=== PATIENT | female | born 1960 | race Two or more races ===

== ENCOUNTER 2017-01-22 21:07 | Inpatient (IN) | payer MEDICAID ==
[~2017-01-22] VITALS: Ht 160 cm; Wt 68.5 kg
[~2017-01-22 21:07] MED LIST: ASPI81CH43; FLUC100T; MEDR10TA9; METHADONE
[2017-01-22 21:55] LABS: Basophils # (auto) 0.1 uL; Basophils % (auto) 0.4 % (0.0-2.0); CONDITION Y; Eosinophils # (auto) 0.1 uL; Eosinophils % (auto) 0.7 % (0.0-7.0); Hematocrit 32.8 % (36.0-46.0); Hemoglobin 10.9 g/dL (12.2-16.2); Lymphocytes # (auto) 2.4 uL; Lymphocytes % (auto) 15.8 % (10.0-50.0); Mean Corpuscular Hgb Conc. 33.3 g/dL (32.0-36.0); Mean Platelet Volume 8.2 fL (7.4-10.4); Monocytes # (auto) 1.1 uL; Monocytes % (auto) 7.1 % (0.0-12.0); Neutrophils # (auto) 11.3 uL; Platelet Count (auto) 363 10^3/uL (140-450); White Blood Cell 14.9 10^3/uL (4.4-10.8)
[2017-01-22 22:23] LABS: Albumin 2.8 g/dL (3.4-5.0); BUN/Creatinine Ratio 14.1; Bilirubin, Total 0.5 mg/dL (0.2-1.0); Calcium 8.6 mg/dL (8.5-10.1); Potassium 3.6 mmol/L (3.5-5.1); Total Protein 8.5 g/dL (6.4-8.2)
[2017-01-23] MEDS ORDERED: SODIUM CHLORIDE 0.9% 1,000 ML IV ONE (03:45)
[2017-01-23] MEDS ORDERED: ALBUTEROL SULF 2.5 MG/0.5ML(0.5%) NEB SOLN NEB ONE (03:45)
[2017-01-23] MEDS ORDERED: cefTRIAXone 1GM/50ML D5W 50 ML IV ONE (03:45)
[2017-01-23] MEDS ORDERED: IPRATROPIUM BROM 0.5 MG/2.5ML INH SOL NEB ONE (03:45)
[2017-01-23] MEDS ORDERED: SODIUM CHLORIDE 0.9% 1,000 ML IV SCH (04:43)
[2017-01-23] MEDS ORDERED: ACETAMINOPHEN 325 MG TAB PO PRN (04:45)
[2017-01-23] MEDS ORDERED: HYDROcodone-ACET 5/325MG TAB PO PRN (04:45)
[2017-01-23] MEDS ORDERED: ALBUTEROL SULF 2.5 MG/0.5ML(0.5%) NEB SOLN NEB PRN (04:45)
[2017-01-23] MEDS ORDERED: ONDANSETRON HCL 4 MG/2 ML VIAL IV PRN (04:45)
[2017-01-23] MEDS ORDERED: SODIUM CHLORIDE 0.9% 500 ML IV ONE (04:45)
[2017-01-23] MEDS ORDERED: methylPREDNISolone SOD SUCC 125 MG/2 ML VL IV ONE (04:45)
[2017-01-23] MEDS ORDERED: MORPHINE SULF INJ 2 MG/ML SYRINGE 1ML IV PRN (04:45)
[2017-01-23] MEDS ORDERED: AZITHROMYCIN 500MG/D5W 250ML 250 ML IV ONE (04:45)
[2017-01-23 06:51] VITALS: BP 97/65
[2017-01-23 08:09] LABS: Urine Bilirubin Negative (Negative); Urine Blood TRACE /uL (Negative); Urine Color Yellow (Yellow); Urine Glucose Normal (Normal); Urine Ketone Negative (Negative); Urine Nitrite Negative (Negative); Urine RBC 2 /hpf (0 - 4); Urine Urobilinogen Normal (Negative); Urine pH 6.5 (5.0-8.0)
[2017-01-23] MEDS: FAMOTIDINE 20 MG TAB PO SCH ×2 (10:08→22:22)
[2017-01-23] MEDS: ENOXAPARIN SOD 40 MG/0.4 ML SYRINGE SC SCH (10:09)
[2017-01-23 12:23] VITALS: BP 92/38
[2017-01-23 13:43] VITALS: BP 91/57
[2017-01-23 14:24] LABS: INR 0.98 (0.9-1.15); Partial Thromboplastin Time 34.2 sec (22.64-33.71); Prothrombin Time 10.7 sec (9.37-12.3)
[2017-01-23] MEDS ORDERED: LACTULOSE 20Gm/30ML SOLN PO PRN (15:00)
[2017-01-23 17:00] VITALS: BP 92/47
[2017-01-23 22:00] VITALS: BP 91/46
[2017-01-23] MEDS ORDERED: cefTRIAXone 1GM/50ML D5W 50 ML IV SCH (22:00)
[2017-01-24 05:00] VITALS: BP 91/51
[2017-01-24 08:00] VITALS: BP 98/52
[2017-01-24 09:30] VITALS: BP 98/52
[2017-01-24] MEDS ORDERED: IOHEXOL 350 MG/ML 100ML IJ ONE (09:41)
[2017-01-24] MEDS: FAMOTIDINE 20 MG TAB PO SCH (09:50)
[2017-01-24] MEDS: ENOXAPARIN SOD 40 MG/0.4 ML SYRINGE SC SCH (09:51)
[2017-01-24] MEDS ORDERED: METHADONE HCL 10 MG TAB PO SCH ×2 (10:00)
[2017-01-24] MEDS ORDERED: AZITHROMYCIN 500MG/D5W 250ML 250 ML IV SCH (10:00)
[2017-01-24 12:14] VITALS: BP 100/62
[2017-01-24 14:16] LABS: CONDITION Y; Hematocrit 29.4 % (36.0-46.0); Hemoglobin 9.9 g/dL (12.2-16.2); Mean Corpuscular Hemoglobin 29.2 pg (28.0-32.0); Mean Corpuscular Hgb Conc. 33.7 g/dL (32.0-36.0); Mean Corpuscular Volume 86.6 fL (80.0-100.0); Mean Platelet Volume 8.9 fL (7.4-10.4); Platelet Count (auto) 285 10^3/uL (140-450); Red Cell Distribution Width 15.1 % (11.6-16.0); SUSPECT SEE PRINTOUT; White Blood Cell 24.5 10^3/uL (4.4-10.8)
[2017-01-24 14:19] LABS: Metamyelocytes % 0; Myelocytes % 0; Promyelocytes % 0; Reactive Lymphocytes 0
[2017-01-24] MEDS ORDERED: AZIT500T4 PO (14:22)
[2017-01-24] MEDS ORDERED: ALBUAER3 IN (14:31)
[2017-01-24 14:33] LABS: Albumin 2.1 g/dL (3.4-5.0); Alkaline Phosphatase 94 U/L (45-117); Anion Gap 10 (5-15); Aspartate Aminotransferase 20 U/L (15-37); BUN/Creatinine Ratio 21.8; Bilirubin, Total < 0.1 mg/dL (0.2-1.0); Blood Urea Nitrogen 17 mg/dL (7-18); Calcium 8.6 mg/dL (8.5-10.1); Carbon Dioxide 20 mmol/L (21-32); Chloride 111 mmol/L (98-107); GFR African American 99 mL/min; GFR Non-African American 82 mL/min; Glucose 108 mg/dL (74-106); Potassium 3.9 mmol/L (3.5-5.1); Sodium 141 mmol/L (136-145)
[2017-01-24 14:41] LABS: Giant Platelets Few; Platelet Clumps FEW; Platelet Estimate Adequa
[2017-01-24 15:10] VITALS: BP 98/52
[2017-01-24 17:18] VITALS: BP 97/46
== END 2017-01-24 18:20 | disposition home or self-care (01) | DRG 140 ==
LOC: ER 21:09 → OVERFLOW 21:10 → TELE-E-ADS 01-23 11:18 → CENTRAL 01-23 13:30
PROVIDERS: ADMIT Nurse Practitioner; ATTEND Internal Medicine
DX: J44.0 Chronic obstructive pulmonary disease with (acute) lower respiratory infection (principal); I11.0 Hypertensive heart disease with heart failure; I95.9 Hypotension, unspecified; E44.0 Moderate protein-calorie malnutrition; F03.90 Unspecified dementia, unspecified severity, without behavioral disturbance, psychotic disturbance, mood disturbance, and anxiety; I50.9 Heart failure, unspecified; D64.9 Anemia, unspecified; C67.9 Malignant neoplasm of bladder, unspecified; F32.9 Major depressive disorder, single episode, unspecified; E11.9 Type 2 diabetes mellitus without complications; J20.9 Acute bronchitis, unspecified; F11.10 Opioid abuse, uncomplicated; F17.210 Nicotine dependence, cigarettes, uncomplicated; J45.909 Unspecified asthma, uncomplicated; N81.10 Cystocele, unspecified; K59.00 Constipation, unspecified; F15.10 Other stimulant abuse, uncomplicated; E03.9 Hypothyroidism, unspecified; D72.829 Elevated white blood cell count, unspecified; T38.0X5A Adverse effect of glucocorticoids and synthetic analogues, initial encounter; Y92.89 Other specified places as the place of occurrence of the external cause; Z90.710 Acquired absence of both cervix and uterus; Z79.82 Long term (current) use of aspirin; Z68.26 Body mass index [BMI] 26.0-26.9, adult
CPT/HCPCS: 36415; 71010; 71260; 74177; 80053; 80307; 81001; 83605; 85007; 85025; 85027; 85379; 85610; 85730; 94640; 96365; J0696

== ENCOUNTER 2019-06-24 12:49 | Emergency (ER) | payer MEDICAID ==
[~2019-06-24] VITALS: Ht 160 cm; Wt 68.0 kg
[~2019-06-24 12:49] MED LIST changes: +ALBUAER3 IN; -ASPI81CH43; +AZIT500T66 PO; -FLUC100T; -MEDR10TA9
[2019-06-24] MEDS ORDERED: cefTRIAXone W LIDOCAINE 1 GM IM IM ONE (13:45)
[2019-06-24] MEDS ORDERED: ASPirin 81 mg TAB PO ONE (13:45)
[2019-06-24 14:29] LABS: Calcium 8.6 mg/dL (8.5-10.1); Potassium 4.1 mmol/L (3.5-5.1)
[2019-06-24 14:35] LABS: BUN/Creatinine Ratio 14.9; Bilirubin, Total 0.3 mg/dL (0.2-1.0); Total Protein 8.2 g/dL (6.4-8.2)
[2019-06-24 17:30] LABS: Basophils # (auto) 0 uL; Basophils % (auto) 0.6 % (0.0-2.0); Eosinophils # (auto) 0.1 uL; Eosinophils % (auto) 2.7 % (0.0-7.0); Hematocrit 34.7 % (36.0-46.0); Hemoglobin 11.3 g/dL (12.2-16.2); Lymphocytes # (auto) 2.3 uL; Lymphocytes % (auto) 44.8 % (10.0-50.0); Mean Corpuscular Hemoglobin 28.9 pg (28.0-32.0); Mean Corpuscular Hgb Conc. 32.5 g/dL (32.0-36.0); Mean Corpuscular Volume 88.9 fL (80.0-100.0); Monocytes # (auto) 0.4 uL; Monocytes % (auto) 8.6 % (0.0-12.0); Neutrophils # (auto) 2.2 uL; Neutrophils % (auto) 43.3 % (37.0-80.0); Nucleated Red Blood Cells % 0.2 %; Platelet Count (auto) 293 10^3/uL (140-450); Red Blood Cells 3.91 10^6/uL (4.0-5.20); Red Cell Distribution Width 14.4 % (11.8-14.3); White Blood Cell 5.1 10^3/uL (4.4-10.8)
[2019-06-24] MEDS ORDERED: cefTRIAXone SOD 1,000 MG VL ONE (19:58)
[2019-06-24] MEDS ORDERED: LIDOCAINE 2% (LOCAL ANESTH.) PF 5ml SDV ONE (19:59)
[2019-06-24 20:10] VITALS: BP 101/56
== END 2019-06-24 20:12 | disposition home or self-care (01) ==
LOC: ER 12:50
DX: J44.9 Chronic obstructive pulmonary disease, unspecified (principal); R07.89 Other chest pain; I50.9 Heart failure, unspecified; E11.9 Type 2 diabetes mellitus without complications; E07.9 Disorder of thyroid, unspecified; F17.210 Nicotine dependence, cigarettes, uncomplicated
CPT/HCPCS: 36415; 71046; 80053; 84484; 85025; 93005; 96372; 99284; J0696; J2001

== ENCOUNTER 2020-09-24 18:05 | Emergency (ER) | payer MEDICAID ==
[~2020-09-24] VITALS: Ht 160 cm; Wt 68.0 kg
[2020-09-24 18:07] VITALS: BP 108/68
[2020-09-24] MEDS ORDERED: KETOROLAC TROMETH 60MG/2ML VIAL IM ONE (23:30)
[2020-09-25 01:32] LABS: Basophils # (auto) 0.4 10 ^3/uL (0-0.2); Basophils % (auto) 5.4 % (0.0-2.0); Eosinophils # (auto) 0.3 10 ^3/uL (0-0.8); Eosinophils % (auto) 4.7 % (0.0-7.0); Hematocrit 40.6 % (36.0-46.0); Hemoglobin 13.6 g/dL (12.2-16.2); Lymphocytes # (auto) 1.5 10 ^3/uL (0.4-5.4); Lymphocytes % (auto) 22.2 % (10.0-50.0); Mean Corpuscular Hemoglobin 30.5 pg (28.0-32.0); Mean Corpuscular Hgb Conc. 33.5 g/dL (32.0-36.0); Monocytes # (auto) 0.2 10 ^3/uL (0-1.3); Monocytes % (auto) 3.6 % (0.0-12.0); Neutrophils # (auto) 4.3 10 ^3/uL (1.6-8.6); Neutrophils % (auto) 64.1 % (37.0-80.0); Platelet Count (auto) 199 10^3/uL (140-450); Red Blood Cells 4.46 10^6/uL (4.0-5.20); Red Cell Distribution Width 14.2 % (11.8-14.3); White Blood Cell 6.6 10^3/uL (4.4-10.8)
[2020-09-25 01:41] LABS: Albumin 3.7 g/dL (3.4-5.0); Calcium 8.9 mg/dL (8.5-10.1); Potassium 4.1 mmol/L (3.5-5.1); Uric Acid 4.6 mg/dL (2.6-6.0)
[2020-09-25 01:44] LABS: Bilirubin, Total 0.4 mg/dL (0.2-1.0); Total Protein 8.7 g/dL (6.4-8.2)
== END 2020-09-25 03:10 | disposition home or self-care (01) ==
LOC: ER 18:05
DX: M79.671 Pain in right foot (principal); R74.8 Abnormal levels of other serum enzymes; F17.210 Nicotine dependence, cigarettes, uncomplicated; Z90.710 Acquired absence of both cervix and uterus
CPT/HCPCS: 36415; 80053; 83880; 84550; 85025; 96372; 99283; J1885

== ENCOUNTER → 2021-05-19 | Outpatient (CLI) | payer MEDICAID ==
[2021-05-19 13:38] LABS: BUN/Creatinine Ratio 23.2; Calcium 8.9 mg/dL (8.5-10.1); Potassium 4.3 mmol/L (3.5-5.1)
== END | disposition home or self-care (01) ==
LOC: LAB 12:31
PROVIDERS: ATTEND Urology
DX: R31.9 Hematuria, unspecified (principal)
CPT/HCPCS: 36415; 80048

== ENCOUNTER → 2022-08-25 | Outpatient (CLI) | payer MEDICAID | END | disposition home or self-care (01) | LOC: Rad HDHVI 13:05 | PROVIDERS: ATTEND Internal Medicine Cardiovascular Disease | DX: I34.0 Nonrheumatic mitral (valve) insufficiency (principal); I10 Essential (primary) hypertension | CPT/HCPCS: 93306 ==

== ENCOUNTER → 2023-04-03 | Outpatient (CLI) | payer MEDICAID | END | disposition home or self-care (01) | LOC: LAB 15:21 | PROVIDERS: ATTEND Surgery | DX: M25.559 Pain in unspecified hip (principal) | CPT/HCPCS: 36415; 82565; 84520 ==

== ENCOUNTER 2023-04-06 11:18 | Emergency (ER) | payer MEDICAID ==
[~2023-04-06] VITALS: Ht 160 cm; Wt 69.6 kg
[2023-04-06 12:36] VITALS: PULSE 83; RESP 12; O2SAT 95
[2023-04-06 12:59] LABS: Basophils # (auto) 0 10 ^3/uL (0-0.2); Basophils % (auto) 0.6 % (0.0-2.0); Eosinophils # (auto) 0.1 10 ^3/uL (0-0.8); Eosinophils % (auto) 1.3 % (0.0-7.0); Hematocrit 33.6 % (36.0-46.0); Hemoglobin 11.1 g/dL (12.2-16.2); Lymphocytes # (auto) 1.4 10 ^3/uL (0.4-5.4); Lymphocytes % (auto) 23.2 % (10.0-50.0); Mean Corpuscular Hemoglobin 30.3 pg (28.0-32.0); Mean Corpuscular Volume 91.8 fL (80.0-100.0); Monocytes # (auto) 0.5 10 ^3/uL (0-1.3); Monocytes % (auto) 8.2 % (0.0-12.0); Neutrophils % (auto) 66.7 % (37.0-80.0); Red Blood Cells 3.65 10^6/uL (4.0-5.20); Red Cell Distribution Width 13.4 % (11.8-14.3)
[2023-04-06 13:04] LABS: Alanine Aminotransferase 49 U/L (7-40); Albumin 3.8 g/dL (3.2-4.8); Alkaline Phosphatase 123 U/L (46-116); Anion Gap 2 (5-15); Aspartate Aminotransferase 23 U/L (13-40); BUN/Creatinine Ratio 13.6 (10.0-20.0); Bilirubin, Total 0.6 mg/dL (0.2-1.0); Blood Urea Nitrogen 12 mg/dL (9-23); Calcium 8.8 mg/dL (8.7-10.4); Carbon Dioxide 30 mmol/L (20-30); Chloride 106 mmol/L (98-107); Glucose 120 mg/dL (74-106); Potassium 3.7 mmol/L (3.5-5.1); Sodium 138 mmol/L (136-145); Total Protein 6.4 g/dL (5.7-8.2)
[2023-04-06 13:45] LABS: Erythrocyte Sedimentation Rate 13 mm/hr (0-20)
[2023-04-06] MEDS ORDERED: cefTRIAXone 1GM/50ML D5W 50 ML IV ONE (16:00)
[2023-04-06] MEDS ORDERED: CLIN150C PO (16:00)
[2023-04-06] MEDS ORDERED: LIDOCAINE 1% HCL (LOCAL ANESTH.) INJ 20ML MDV ONE (17:39)
[2023-04-06] MEDS ORDERED: cefTRIAXone SOD 1,000 MG VL IM ONE (17:45)
[2023-04-06 17:47] VITALS: BP 102/67; PULSE 85; RESP 14; TEMP 98.2; O2SAT 96
== END 2023-04-06 17:49 | disposition home or self-care (01) ==
LOC: ER 11:18
DX: T23.232A Burn of second degree of multiple left fingers (nail), not including thumb, initial encounter (principal); L03.012 Cellulitis of left finger; J44.9 Chronic obstructive pulmonary disease, unspecified; E11.9 Type 2 diabetes mellitus without complications; F17.210 Nicotine dependence, cigarettes, uncomplicated; Z90.710 Acquired absence of both cervix and uterus; X08.8XXA Exposure to other specified smoke, fire and flames, initial encounter; Y93.89 Activity, other specified; Y92.89 Other specified places as the place of occurrence of the external cause; Y99.8 Other external cause status
CPT/HCPCS: 36415; 73200; 80053; 85025; 85652; 96372; 99285; J0696; J2001

== ENCOUNTER → 2024-06-13 | Outpatient (CLI) | payer MEDICAID ==
[~2024-06-13] MED LIST changes: +CLIN150C PO
[2024-06-13 12:02] LABS: Urine Bacteria None Seen /hpf (None Seen)
[2024-06-13 12:08] LABS: Basophils # (auto) 0 10 ^3/uL (0-0.2); Basophils % (auto) 0.6 % (0.0-2.0); Eosinophils # (auto) 0 10 ^3/uL (0-0.8); Eosinophils % (auto) 0.2 % (0.0-7.0); Hematocrit 34.9 % (36.0-46.0); Hemoglobin 11.8 g/dL (12.2-16.2); Lymphocytes # (auto) 1.4 10 ^3/uL (0.4-5.4); Mean Corpuscular Hgb Conc. 33.7 g/dL (32.0-36.0); Mean Corpuscular Volume 88.9 fL (80.0-100.0); Monocytes # (auto) 0.5 10 ^3/uL (0-1.3); Monocytes % (auto) 9.4 % (0.0-12.0); Neutrophils # (auto) 3.8 10 ^3/uL (1.6-8.6); Neutrophils % (auto) 65.8 % (37.0-80.0); Platelet Count (auto) 224 10^3/uL (140-450); Red Blood Cells 3.93 10^6/uL (4.0-5.20); Red Cell Distribution Width 14.2 % (11.8-14.3); White Blood Cell 5.7 10^3/uL (4.4-10.8)
[2024-06-13 12:32] LABS: Alanine Aminotransferase 36 U/L (7-40); Albumin 3.7 g/dL (3.2-4.8); Alkaline Phosphatase 107 U/L (46-116); Anion Gap 4 (5-15); Aspartate Aminotransferase 24 U/L (13-40); BUN/Creatinine Ratio 15.1 (10.0-20.0); Blood Urea Nitrogen 13 mg/dL (9-23); Calcium 9.2 mg/dL (8.7-10.4); Carbon Dioxide 28 mmol/L (20-31); Glucose 104 mg/dL (74-106); Potassium 4.2 mmol/L (3.5-5.1); Sodium 139 mmol/L (136-145)
[2024-06-13 12:33] LABS: Bilirubin, Total 0.4 mg/dL (0.2-1.0); Total Protein 6.4 g/dL (5.7-8.2)
[2024-06-13 12:37] LABS: Chloride 107 mmol/L (98-107)
[2024-06-13 12:50] LABS: Urine Blood TRACE /uL (Negative); Urine Clarity Clear (Clear); Urine Color Light-Yellow (Yellow); Urine Protein, UAD Negative (Negative); Urine Specific Gravity 1.008 (1.001-1.035); Urine Squamous Epithelial Cell None Seen /hpf (<5); Urine Urobilinogen Normal (Negative); Urine WBC <1 /hpf (0 - 5)
== END | disposition home or self-care (01) ==
LOC: LAB 11:49
PROVIDERS: ATTEND Internal Medicine
DX: J45.41 Moderate persistent asthma with (acute) exacerbation (principal); F19.11 Other psychoactive substance abuse, in remission; R31.9 Hematuria, unspecified; Z86.19 Personal history of other infectious and parasitic diseases
CPT/HCPCS: 36415; 80053; 81001; 85025